=== PATIENT | male | born 1985 | race Caucasian/White ===

== ENCOUNTER 2019-08-17 21:06 | Emergency (ER) | payer SELFPAY ==
[~2019-08-17] VITALS: Ht 172.7 cm; Wt 69.4 kg
[2019-08-17 21:29] VITALS: BP 129/80
--- NOTE | 2019-08-17 22:45 | NUR ---
PT TO ROOM AT THIS TIME
[2019-08-17] MEDS ORDERED: LIDOCAINE-MPF 1%, 5ML ONE ×2 (22:46→22:54)
--- NOTE | 2019-08-17 22:56 | NUR ---
Patient refusing Tdap per MD consult.
[2019-08-17] MEDS ORDERED: LIDOCAINE 2%, 20ML SQ ONE (23:00)
[2019-08-17] MEDS ORDERED: CLINDAMYCIN 150 MG/ML, 6ML ONE (23:00)
[2019-08-17] MEDS ORDERED: CLINDAMYCIN 150 MG/ML, 6ML IM ONE (23:00)
[2019-08-17] MEDS ORDERED: CLINDAMYCIN 300 MG CAPSULE ONE (23:14)
[2019-08-17] MEDS ORDERED: KETAMINE 100 MG/ML, 5ML IM ONE (23:30)
[2019-08-17] MEDS ORDERED: CLINDAMYCIN 300 MG CAPSULE PO ONE (23:30)
[2019-08-17] MEDS ORDERED: IBUPROFEN 800 MG TABLET ONE (23:56)
[2019-08-18] MEDS ORDERED: IBUPROFEN 800 MG TABLET PO ONE
--- NOTE | 2019-08-18 | NUR ---
Pt initially did not tolerate lido block for I&D and agreeable to procedural sedation per md education. After discussion w/ girlfriend and having time to reflect on potential for sedation, pt declines procedural sedation and would prefer to endure lido block. Pt tolerated lido block and I&D successfully completed. Wound packed and appropriately wrapped. Medicated for pain per mar and verbally agrees to come back in 2-4 days for repacking of wound.
--- NOTE | 2019-08-18 00:50 | NUR ---
Discharge instructions given. All questions and concerns addressed. Patient ambulatory with a steady gait. Belongings with patient.
== END 2019-08-18 00:54 | disposition home or self-care (01) ==
LOC: ED 08-18
DX: L02.414 Cutaneous abscess of left upper limb (principal); L03.114 Cellulitis of left upper limb; F17.210 Nicotine dependence, cigarettes, uncomplicated
CPT/HCPCS: 10060; 87070; 87077; 87205; 99406

== ENCOUNTER 2019-08-20 23:11 | Emergency (ER) | payer SELFPAY ==
[~2019-08-20] VITALS: Ht 172.7 cm; Wt 71.6 kg
[2019-08-20 23:18] VITALS: BP 119/77
--- NOTE | 2019-08-21 00:57 | NUR ---
NIL AT THIS TIME
--- NOTE | 2019-08-21 01:15 | NUR ---
NO ANSWER WHEN CALLED FOR ROOM
--- NOTE | 2019-08-21 02:05 | NUR ---
nilx3 lwbs
== END 2019-08-21 02:07 | disposition left against medical advice (07) ==
LOC: ED 08-21 02:01
DX: Z48.00 Encounter for change or removal of nonsurgical wound dressing (principal); Z53.21 Procedure and treatment not carried out due to patient leaving prior to being seen by health care provider

== ENCOUNTER 2019-08-22 11:30 | Emergency (ER) | payer MEDICAID ==
[~2019-08-22] VITALS: Ht 175.3 cm; Wt 71.9 kg
[2019-08-22 11:47] VITALS: BP 119/65
--- NOTE | 2019-08-22 12:24 | NUR ---
pts wound assessed by EDPA, packing removed and re-packed by EDPA. band-aid dressing placed. pt states he did not fill script d/t finances, medication assistance resources provided. pt given dc instructions, ambulated to dc desk with steady gait. all questions answered.
== END 2019-08-22 12:24 | disposition home or self-care (01) ==
LOC: ED 12:15
DX: Z48.01 Encounter for change or removal of surgical wound dressing (principal)
CPT/HCPCS: 99281